=== PATIENT | female | born 1965 | race African-American/Black ===

== ENCOUNTER 2017-07-14 19:16 | Emergency (ER) | payer OTHER ==
[~2017-07-14] VITALS: Ht 162.6 cm; Wt 74.8 kg
[~2017-07-14 19:16] MED LIST: IBUPROFEN 200200 M1 PO; ONDANSETRON HCL4 M2 PO; PROTONIX40 M1 PO
[2017-07-14] MEDS ORDERED: IBUPROFEN 800800 M1 PO (19:46)
[2017-07-14] MEDS ORDERED: AMOXICILLIN 50500 MG PO (19:46)
== END 2017-07-14 20:52 | disposition home or self-care (01) ==
LOC: ER 19:16
DX: K08.89 Other specified disorders of teeth and supporting structures (principal); Z87.891 Personal history of nicotine dependence